=== PATIENT | male | born 1980 | race Caucasian/White ===

== ENCOUNTER 2024-08-15 12:22 | Observation (INO) | payer BC ==
[2024-08-15] MEDS ORDERED: Bupivacaine 0.25% HCL 30 ML VIAL ONE (13:50)
[2024-08-15] MEDS ORDERED: EPINEPHrine 1 MG/ML VIAL ONE (13:50)
[2024-08-15] MEDS ORDERED: Glycopyrrolate 0.2 MG/ML 5 ML SYRINGE ONE (13:56)
[2024-08-15] MEDS ORDERED: PHENYLEPHRINE-NS 100 MCG/ML 10 ML SYRINGE ONE (13:56)
[2024-08-15] MEDS ORDERED: Rocuronium Bromide 10 MG/ML (10ML VIAL) ONE (13:56)
[2024-08-15] MEDS ORDERED: fentaNYL PF 100 MCG/2 ML SYRINGE ONE ×2 (13:56→15:18)
[2024-08-15] MEDS ORDERED: Ondansetron PF 4 MG/2 ML Vial ONE (13:56)
[2024-08-15] MEDS ORDERED: Midazolam HCl 2 mg/2 ml Vial ONE (13:56)
[2024-08-15] MEDS ORDERED: Lidocaine 1% PF 5 ML VIAL ONE (13:56)
[2024-08-15] MEDS ORDERED: Dexamethasone 20 MG/5 ML VIAL ONE (13:56)
[2024-08-15] MEDS ORDERED: PROPOFOL 20 ML ONE (13:56)
[2024-08-15] MEDS ORDERED: Lidocaine 2% 6 ML (Jelly) SYR ONE (14:01)
[2024-08-15] MEDS ORDERED: CEFAZOLIN 2 GM VIAL ONE (14:06)
[2024-08-15] MEDS ORDERED: metroNIDAZOLE 500 MG (100 mL) BAG ONE (14:06)
[2024-08-15] MEDS ORDERED: SUGAMMADEX SODIUM 200 MG/2 ML VIAL ONE (15:01)
[2024-08-15] MEDS ORDERED: Meperidine HCl/PF 25 MG (1 mL) VIAL ONE (15:15)
[2024-08-15] MEDS ORDERED: Ondansetron PF 4 MG/2 ML Vial IVP PRN (15:55)
[2024-08-15] MEDS ORDERED: Glucagon 1 MG/ML KIT IM PRN (15:55)
[2024-08-15] MEDS ORDERED: Calcium Carbonate 500 MG ChewTAB PO PRN (15:55)
[2024-08-15] MEDS ORDERED: Dextrose 50% Abboject 50 ML SYRINGE SLOW IVP PRN (15:55)
[2024-08-15] MEDS ORDERED: Dextrose 5% in Water 1,000 ML IV PRN (15:55)
[2024-08-15] MEDS ORDERED: HYDROcodone/Acetaminophen 5/325 mg Tablet PO PRN (16:06)
[2024-08-15 17:38] VITALS: BMI 28.8
[2024-08-15] MEDS: Ketorolac Tromethamine 30 MG (1 mL) VIAL IVP SCH (18:36)
[2024-08-15] MEDS: Famotidine 20 MG TAB PO SCH (21:34)
[2024-08-15] MEDS: D5 1/2 NS w/20 mEq KCL 1,000 ML IV SCH (21:34)
[2024-08-16 11:07] VITALS: BP 130/82; TEMP 97.4
== END 2024-08-16 12:17 | disposition home or self-care (01) ==
LOC: SDC 12:22 → SURG A 17:45
PROVIDERS: ADMIT Surgery; ATTEND Surgery
PROC: 0DTJ4ZZ Resection of Appendix, Percutaneous Endoscopic Approach (ICD-10-PCS; principal; 2024-08-16)
DX: K35.80 Unspecified acute appendicitis (principal); K38.8 Other specified diseases of appendix; I10 Essential (primary) hypertension; Z88.0 Allergy status to penicillin; Z79.899 Other long term (current) drug therapy
CPT/HCPCS: 88304; J0171; J0665; J1100; J1885; J2175; J2250; J2405; J2704; J3480